=== PATIENT | male | born 1955 | race Caucasian/White ===

== ENCOUNTER → 2024-06-06 06:32 | Day surgery (SDC) | payer MEDICARE, OTHER, SELFPAY | LOC: GI 06:32 | PROVIDERS: ATTENDING PHYSICIAN Internal Medicine | DX: Z12.11 Encounter for screening for malignant neoplasm of colon (principal); Z85.038 Personal history of other malignant neoplasm of large intestine; K57.30 Diverticulosis of large intestine without perforation or abscess without bleeding; D12.2 Benign neoplasm of ascending colon; D12.3 Benign neoplasm of transverse colon; D12.5 Benign neoplasm of sigmoid colon; D12.4 Benign neoplasm of descending colon; K63.5 Polyp of colon | CPT/HCPCS: 45385; 45381; 88305 ==

== ENCOUNTER 2025-01-12 06:26 | Day surgery (SDC) | payer MEDICARE, OTHER, SELFPAY ==
[2025-01-12 10:45] VITALS: BMI 24.8
[2025-01-12 10:46] VITALS: BMI 24.8
[2025-01-12 11:24] VITALS: BP 163/89
[2025-01-12 14:32] VITALS: BP 142/85
[2025-01-12 14:46] VITALS: BP 164/97
== END 2025-01-12 15:03 | disposition home or self-care (01) ==
LOC: SDS 06:26
PROVIDERS: ATTENDING PHYSICIAN Internal Medicine Gastroenterology
DX: D12.2 Benign neoplasm of ascending colon (principal); D12.4 Benign neoplasm of descending colon; K63.5 Polyp of colon; K64.0 First degree hemorrhoids
CPT/HCPCS: 45390; 45385; 88305

== ENCOUNTER 2025-06-07 14:06 | Inpatient (IN) | payer MEDICARE, OTHER, SELFPAY ==
[2025-06-07] VITALS (11 sets, daily range): BP systolic 133–201; BP diastolic 81–128; BMI 26.2; BMI 25.4
--- NOTE | 2025-06-07 11:35 | ED.GENMED ---
History of Present Illness
<Ghada Botello MD, Resident - Last Filed: 06/07/25 14:32>
General
Chief Complaint: Breathing Problem
Source: patient and significant other
Exam Limitations: none
Time Seen by Provider: 06/07/25 11:17
Nursing documentation reviewed up to this point in time: agreed with
History of Present Illness
History of Present Illness:
70yo M with HTN, HLD, & smoking hx who presents following extended episode of dyspnea.
Pt reports that yesterday evening he suddenly began experiencing severe dyspnea, which felt like a panic attack to him. Denies any chest pain, more some pressure, with no radiation to L arm or back. Has chronic back pain. States that he felt
stressed before sx began. Also states that the sx began after he went up a flight of stairs in the house. Then, he was not able to sleep all night due to the dyspnea. He was unable to lie flat, most comfortable with sitting upright in different
positions. Denies any new ALICIA. States that for the last week maybe he's been feeling more dyspneic with walking up and down stairs. This am sx were persistent, so took baby aspirin x4 at 8:30am, which made him feel better. Took his BP, which was
150s systolic. Came to the ED. On transport to the ED, felt a bit dyspneic with activity but not as severe as last night. No visible dyspnea or tachypnea on exam, sitting & speaking without difficulty. Has a dx of HTN, which he manages with
lifestyle only. Has a dx of HLD, which he manages with krill oil.
States that he did have an episode that felt somewhat similar to this but not as severe a few weeks ago. About 5 weeks ago he had a URI, which progressed into a prolonged bronchitis that only recently resolved. Still has a bit of a hoarseness, cough
periodically. Pt does smoke, typically 1-2 cigars a day (prior cigarette smoking, has made attempts to quit in the past).
Past History
<Ghada Botello MD, Resident - Last Filed: 06/07/25 14:32>
Past History
ED Past Medical History: HTN and Hypercholesterolemia
Patient has exhibited threatening behavior?: No
Social History
Tobacco: Smoker
Personal:
Living: with family
Review of Systems
<Ghada Botello MD, Resident - Last Filed: 06/07/25 14:32>
Review of Systems
All Other Systems: ROS reviewed and negative except as documented in HPI and ROS
Constitutional: Reports no symptoms
EENT: Reports sore throat
Respiratory: Reports trouble breathing
Cardiac: Reports no symptoms
ABD/GI: Reports no symptoms
: Reports no symptoms
Musculoskeletal: Reports no symptoms
Skin: Reports no symptoms
Neurological: Reports no symptoms
Psychiatric: Reports anxiety
Phy Exam
<Ghada Botello MD, Resident - Last Filed: 06/07/25 14:32>
General Physical Exam
General Presentation: well appearing and no apparent distress
General age: appears stated age
General Skin: warm and dry
General Habitus: normal
General Mental: alert
Cardiovascular Exam
Cardiovascular Exam: tachycardia and other (trace pitting edema to lower shins bilaterally )
Heart Sounds: normal
Pulmonary Exam
Pulmonary Exam: no respiratory distress, no crackles and no wheezing
Gastrointestinal Exam
Gastrointestinal Exam: soft and non distended
Neurological Exam
Neurological Exam: alert and oriented x3
Musculoskeletal Exam
Musculoskeletal Exam: full ROM and edema (trace pitting edema to lower shins bilat LE)
Skin Exam
Skin Exam: normal color and warm/dry
Psychiatric Exam
Psychiatric Exam: anxious
Scores
<Gahda Botello MD, Resident - Last Filed: 06/07/25 14:32>
Heart Failure Risk
Heart Failure Risk Score: Yes
History of Stroke or TIA: No
History of intubation for respiratory distress: No
Heart rate on ED arrival >/= 110: No
SaO2 <90% on arrival on room air: No
HR >/=110 during 3min walk test (or too ill to perform test): No
ECG has acute ischemic changes: No
Urea >/=12mmol/L (BUN 33.6mg/dL): No
Serum CO2>/=35mmol/L: No
Troponin I or T elevated to CT Level (0.4mg/dL): No
NT-proBNP >/=5,000ng/L (5,000pg/ml): No
HF Risk Score: 0
Admission Status: LOW RISK 2.8% Consider discharge to home with f/u visit to PCP/[facility]
Sepsis
<Ghada Botello MD, Resident - Last Filed: 06/07/25 14:32>
Sepsis Screening
Sepsis Assessment: Sepsis Ruled Out
Sepsis Screen
Sepsis Screen: Sepsis Ruled Out
Date: 06/07/25
Time: 14:32
Course
<Ghada Botello MD, Resident - Last Filed: 06/07/25 14:32>
Orders/Labs/Results
Orders:
Orders
06/07/25 11:03
Electrocardiogram (*1) Urgent
Reason for Study: Chest Pain
EKG- Treatment ONCE
06/07/25 11:37
CR Chest - 2 Views Urgent
Comment:
Reason For Exam: sob
06/07/25 11:41
COVID-19 Antigen Stat
Source: Nasal Swab
Complete Blood Count/With Diff Urgent
Comprehensive Metabolic Panel Urgent
NT-proBNP Urgent
Troponin I Urgent
Influenza A+B Rapid Molecular Urgent
CURTIS Source: Nasal Swab
Specimen Description:
06/07/25 11:57
Nitroglycerin Sublingual [Nitrostat (Sublingual)] 0.4 mg SL [id number] PRN
06/07/25 12:41
Furosemide [Lasix] 40 mg IV NOW STA
06/07/25 13:52
Admit/Transfer Patient As Directed
Co-Sign Provider:
Level of Care: Inpatient admission
Assign to:: Telemetry
Physician / Group: jennifer
Diagnosis: chf exacerbation
Reason for Telemetry: Acute Heart Failure
Date to Stop Telemetry: 06/10/25
Time to Stop Telemetry: 11:00
Reason for Hospitalization: chf exacerbation
Expected length of stay greater than two midnights?: Yes
ELOS- Estimated Length of Stay in days: 2
I certify the patient meets the requirements for IP care: Yes
PRN Pain Medication Management As Directed
May give lesser potent ordered pain med per pt: Yes
preference::
Protocol:: Medication orders for pain may be administered in a
manner that supports deferring to patient preference
when the pt is:
- Requesting an ordered lesser potent pain medication.
Least to most potent pain medications are defined
as: acetaminophen < NSAID < tramadol < opioids
(morphine, oxycodone, hydromorphone).
- Requesting a lesser dose of the same medication IF
ORDERED.
- Requesting a less intrusive route of administration
if both routes are prescribed by the provider (PO <
IV).
06/07/25 13:53
Code Status As Directed
Resuscitation Status: Full Code
06/10/25 11:00
DC Protocol for Telemetry ONCE
Abnormal Lab Results
06/07/25
11:41
RBC 4.51 L 10^6/uL
(4.70-6.10)
MCV 96.0 H fL
(80.0-94.0)
MCH 32.8 H pg
(27.0-31.0)
Absolute Neuts (auto) 7.6 H 10^3/uL
(1.4-6.5)
Absolute Monos (auto) 0.9 H 10^3/uL
(0.1-0.6)
Neutrophils % 75.6 H %
(42.2-75.2)
Lymphocytes % 14.5 L %
(20.5-51.1)
Chloride 108 H mmol/L
(98-107)
Glucose 120 H mg/dl
(70-99)
06/07/25 11:41
06/07/25 11:41
Vital Signs
Initial and Last Documented VS:
Initial Vital Signs
Pulse Resp BP Pulse Ox
103 26 197/128 96
06/07/25 11:06 06/07/25 11:06 06/07/25 11:06 06/07/25 11:06
Last Documented Vital Signs
Pulse Resp BP Pulse Ox
75 23 133/81 96
06/07/25 14:00 06/07/25 14:00 06/07/25 14:00 06/07/25 14:00
<Radha Goodwin, DO - Last Filed: 06/07/25 13:06>
Orders/Labs/Results
Orders:
Orders
06/07/25 11:03
Electrocardiogram (*1) Urgent
Reason for Study: Chest Pain
EKG- Treatment ONCE
06/07/25 11:37
CR Chest - 2 Views Urgent
Comment:
Reason For Exam: sob
06/07/25 11:41
COVID-19 Antigen Stat
Source: Nasal Swab
Complete Blood Count/With Diff Urgent
Comprehensive Metabolic Panel Urgent
NT-proBNP Urgent
Troponin I Urgent
Influenza A+B Rapid Molecular Urgent
CURTIS Source: Nasal Swab
Specimen Description:
06/07/25 11:57
Nitroglycerin Sublingual [Nitrostat (Sublingual)] 0.4 mg SL [id number] PRN
06/07/25 12:41
Furosemide [Lasix] 40 mg IV NOW STA
06/07/25 13:52
Admit/Transfer Patient As Directed
Co-Sign Provider:
Level of Care: Inpatient admission
Assign to:: Telemetry
Physician / Group: jennifer
Diagnosis: chf exacerbation
Reason for Telemetry: Acute Heart Failure
Date to Stop Telemetry: 06/10/25
Time to Stop Telemetry: 11:00
Reason for Hospitalization: chf exacerbation
Expected length of stay greater than two midnights?: Yes
ELOS- Estimated Length of Stay in days: 2
I certify the patient meets the requirements for IP care: Yes
PRN Pain Medication Management As Directed
May give lesser potent ordered pain med per pt: Yes
preference::
Protocol:: Medication orders for pain may be administered in a
manner that supports deferring to patient preference
when the pt is:
- Requesting an ordered lesser potent pain medication.
Least to most potent pain medications are defined
as: acetaminophen < NSAID < tramadol < opioids
(morphine, oxycodone, hydromorphone).
- Requesting a lesser dose of the same medication IF
ORDERED.
- Requesting a less intrusive route of administration
if both routes are prescribed by the provider (PO <
IV).
06/07/25 13:53
Code Status As Directed
Resuscitation Status: Full Code
06/10/25 11:00
DC Protocol for Telemetry ONCE
Abnormal Lab Results
06/07/25
11:41
RBC 4.51 L 10^6/uL
(4.70-6.10)
MCV 96.0 H fL
(80.0-94.0)
MCH 32.8 H pg
(27.0-31.0)
Absolute Neuts (auto) 7.6 H 10^3/uL
(1.4-6.5)
Absolute Monos (auto) 0.9 H 10^3/uL
(0.1-0.6)
Neutrophils % 75.6 H %
(42.2-75.2)
Lymphocytes % 14.5 L %
(20.5-51.1)
Chloride 108 H mmol/L
(98-107)
Glucose 120 H mg/dl
(70-99)
06/07/25 11:41
06/07/25 11:41
Vital Signs
Initial and Last Documented VS:
Initial Vital Signs
Pulse Resp BP Pulse Ox
103 26 197/128 96
06/07/25 11:06 06/07/25 11:06 06/07/25 11:06 06/07/25 11:06
Last Documented Vital Signs
Pulse Resp BP Pulse Ox
75 23 133/81 96
06/07/25 14:00 06/07/25 14:00 06/07/25 14:00 06/07/25 14:00
<Ghada Botello MD, Resident - Last Filed: 06/07/25 14:32>
MDM/Problems Addressed
Differential Diagnosis Includes:
Ddx:
Flash pulmonary edema, new onset CHF in s/o poorly controlled HTN (although ALICIA is trace)
New-onset COPD exacerbation (smoking hx, recent URI/bronchitis; although no wheeze)
Unstable angina (known ASCVD risk factors, improved w aspirin; although no CP)
Panic attack (duration long for that)
PNA (no crackles, no fever)
MDM/Problems Addressed:
- Pro-BNP
- EKG, troponin
- CBC, CMP
- CXR
- COVID, flu
<Ghada Botello MD, Resident - Last Filed: 06/07/25 14:32>
*Pulse Oximetry
SaO2: 98
Oxygen Mode of Delivery: Room air
Patient hypoxic: no
*Critical Care Note
Total Time (30-74mins, 75-104mins- exclusive of procedures): Not Applicable
<Ghada Botello MD, Resident - Last Filed: 06/07/25 14:32>
Update Note
Update Note:
11:45am
Pt with BP elevated to 201/120 systolic on exam, anxious
Will give sublingual nitro
EKG with:
SINUS TACHYCARDIA WITH OCCASIONAL PREMATURE VENTRICULAR COMPLEXES
POSSIBLE LEFT ATRIAL ENLARGEMENT
NON-SPECIFIC INTRA-VENTRICULAR CONDUCTION BLOCK
POSSIBLE INFERIOR INFARCT , AGE UNDETERMINED
ABNORMAL ECG
12:30pm
BNP elevated 67213
Trop subclinical elevation 0.030 likely 2/2 demand ischemia/type II
CXR with signs of congestion, pulm edema, cephalization (pending formal read)
COVID/flu negative
Will give lasix & plan for admission in s/o suspected acute HF exacerbation w flash pulmonary edema
ED Attending Note
<Ghada Botello MD, Resident - Last Filed: 06/07/25 14:32>
-
Portions of this chart may have been created with voice recognition software.� Occasional wrong word or��sound alike� substitutions may have occurred due to the inherent limitations of voice recognition software.
<Radha Goodwin DO - Last Filed: 06/07/25 13:06>
ED Attending Note
Patient seen and examined by attending physician: Yes
I performed the substantive portion of visit, reviewed & personally made and approve the management plan that is documented in note by myself or HARI.: Yes
I performed a history and physical exam of patient and discussed management with resident, I reviewed resident's note and agree with documented findings and plan of care.: Yes
ED Attending Note:
70-year-old male with history of hypertension and hyperlipidemia, managed conservatively with OTC medications, presenting to the emergency department for shortness of breath. Patient reports since yesterday evening, has been feeling dyspneic, worse
when he was trying to go up stairs. He notes that he cannot lay flat. He was unable to sleep all last night secondary to his symptoms. Took 4 aspirin this morning and felt that his symptoms had improved slightly. Denies any associated chest
pain. Denies any lower extremity swelling. Denies any history of CHF. Reports that he checked his blood pressure last evening it was elevated, however this is not atypical for him, will do breathing exercises with subsequent improvement. He was
encouraged to come to the hospital by family. Vital signs on arrival significant for marked hypertension.
On exam, patient resting comfortably, no acute distress. No significant work of breathing. However on cardiac and pulmonary exam, crackles diffusely throughout the lung mederos. No significant lower extremity swelling. EKG obtained on arrival,
abnormal with ST depressions V4-V6. Clinically symptoms appear most consistent with acute CHF, possible element of flash pulmonary edema last evening which has since improved. Plan for chest x-ray laboratory analysis. Will administer
nitroglycerin for patient blood pressure control
13:00 - Chest x-ray is consistent with pulmonary edema and BNP is elevated at 10,000. Again at this time concern for acute heart failure. Patient warrants admission. Will start patient on Lasix and plan for admission.
Discharge Plan
Departure
Patient Disposition: Admit
Date of Disposition: 06/07/25
Time of Disposition: 13:18
Presentation/result/management discussed w/ accepting MD/DO: Hospitalist
Patient with high blood pressure during this ER visit?: Yes
Condition: Fair
Discharge Problem:
New onset of congestive heart failure, Hypertensive emergency
Interventions
Interventions:
*Risk Screen - Suicide Last Done: 06/07/25 13:47
*Neglect/Abuse Screening Last Done: 06/07/25 13:47
ED- Cardiac Assessment Last Done: 06/07/25 13:46
ED- Pulmonary Assessment Last Done: 06/07/25 13:46
[2025-06-07 11:56] LABS: Hematocrit 43.3 % (39.0-52.0); Hemoglobin 14.8 g/dL (13.0-18.0); Mean Corp Hgb Conc. 34.2 g/dL (33.0-37.0); Mean Corpuscular Volume 96.0 fL (80.0-94.0); Nucleated Red Blood Cells % 0 % (-); Platelet Count 168 10^3/uL (130-400); Red Cell Dist. Width 12.8 % (11.5-14.5)
[2025-06-07 12:08] LABS: ALT (SGPT) 32 U/L (0-50); AST (SGOT) 23 U/L (17-59); Albumin 4.7 g/dl (3.5-5.0); Alkaline Phosphatase 67 U/L (38-126); Blood Urea Nitrogen 11 mg/dl (9-20); Calcium 9.2 mg/dl (8.4-10.2); Carbon Dioxide 26 mmol/L (22-30); Chloride 108 mmol/L (98-107); Estimated Creatinine Clearance 100 ml/min; Glucose 120 mg/dl (70-99); Potassium 4.4 mmol/L (3.5-5.1); Sodium 139 mmol/L (135-145); Total Protein 7.9 g/dl (6.3-8.2); eGFR > 60.00
[2025-06-07 12:11] LABS: COVID-19 Antigen Negative (Negative)
[2025-06-07 12:21] LABS: Troponin I 0.030 ng/ml
[2025-06-07] MEDS: NITROSTAT (SUBLINGUAL) 0.4 MG SL ×2 (13:11→13:37)
[2025-06-07] MEDS: LASIX 40 MG IV ×2 (13:12→19:37)
--- NOTE | 2025-06-07 13:56 | HPS.HSE ---
Family Physician
-
Family Physician: Connie King MD
Chief Complaint
-
shortness of breath
History of Present Illness
70-year-old male past medical history of chronic back pain, hypertension, hyperlipidemia, smoking history presenting for shortness of breath starting yesterday. He had recently recovered from a cold a few weeks ago with congestion and cough but has
not completely felt better.
Yesterday he had shortness of breath which felt like a panic attack. He denied any chest pain or pressure. Symptoms may have been triggered by flight of stairs but he is not sure. He denies any swelling in his legs. He thinks that he did gain
some weight during gi.
This morning symptoms were persistent and he took 4 baby aspirin with improvement. �He took his blood pressure which was 150 systolic. �He came to the emergency room.
He smokes 1 to 2 cigars a day but quit a few weeks ago. He drinks alcohol occasionally.
He does not take any medication for high blood pressure.
No family history of heart disease.
Medical History
Past Medical History
Past Medical History: Reports Other (chronic back pain, hypertension, hyperlipidemia, smoking history)
Past Surgical History: Reports None
Social History
Tobacco: Smoker
Alcohol: None
Drug: None
Family History
Family History: Not pertinent
Allergies / Home Medications
Allergies reflects when Allergies were last updated in [facility].
Home Medications with original date entered in [facility]
Allergy/Medication List:
Allergies
Allergy/AdvReac Type Severity Reaction Status Date / Time
Penicillins Allergy Unknown Verified 06/07/25 11:06
pollen extracts Allergy Unknown Verified 06/07/25 11:06
Andizha-ATE-ApD Reductase Allergy Unknown Verified 06/07/25 11:06
Inhibitor
Home Medications
Mushroom Complex 1 tab PO DAILY 01/12/25
krill [id number] 300 mg-90 mg-24 mg-50 mg capsule (krill oil) 1 cap PO DAILY 01/12/25
yeast 1 ea PO DAILY 01/12/25
aspirin 81 mg tablet,delayed release 324 mg PO DAILYPRN PRN mild pain 06/07/25
ibuprofen 200 mg tablet (Advil) 400 mg PO DAILYPRN PRN mild pain 06/07/25
Review of Systems
-
History Source: Patient
A 12 point ROS was completed and negative except as noted: Yes
Constitutional: Reports No Symptoms
EENT: Reports No Symptoms
Respiratory: Reports See HPI
Cardiac: Reports See HPI
Abdomen/GI: Reports No Symptoms
: Reports No Symptoms
Musculoskeletal: Reports No Symptoms
Skin: Reports No Symptoms
Neurological: Reports No Symptoms
Endocrine: Reports No Symptoms
Hematologic/Lymphatic: Reports No Symptoms
Psych: Reports No Symptoms
Physical Exam
Vital Signs
Vital Signs
Pulse Resp BP Pulse Ox
80 23 154/97 96
06/07/25 13:15 06/07/25 13:00 06/07/25 13:37 06/07/25 13:15
Physical Exam
General: Well Developed, Well Nourished and No Apparent Distress
HEENT: NormoCephalic, Moist mucous membranes and Atraumatic
Respiratory: Clear
Cardiac: S1/S2 and Regular Rhythm; No Murmur or Rub
GI: Soft, Non Tender, Non Distended and Normal Bowel Sounds; No Organomegaly
Rectal: Deferred by Provider
Musculoskeletal: No Clubbing, No Cyanosis and No Edema
Skin: No Rash
Neuro: Nonfocal/grossly intact
Laboratory Results
-
06/07/25 11:41
06/07/25 11:41
Laboratory Results
Total Bilirubin 1.2 mg/dl (0.2-1.3) 06/07/25 11:41
AST 23 U/L (17-59) 12/03/25 11:41
ALT 32 U/L (0-50) 06/07/25 11:41
Alkaline Phosphatase 67 U/L (38-126) 06/07/25 11:41
Troponin I 0.030 ng/ml 06/07/25 11:41
Data Reviewed
-
Lab Data: Labs Reviewed by me
Old Records: Reviewed
Impression/Plan
-
IMPRESSION:
PLAN:
# Hypertensive emergency
# Acute new onset CHF exacerbation secondary to uncontrolled hypertension
- Blood pressure up to 201/120 however has come down to 150s with Lasix
-EKG shows sinus tachycardia with occasional PVCs,
- Cardiac BNP 10,000
-Chest x-ray shows perihilar prominence and opacities with small bilateral pleural effusions
- Troponin 0.03
- COVID and influenza negative
- Check I's and O's, daily weights
- Trend troponins
- 40 IV Lasix daily
-As needed hydralazine
-Continue aspirin
- Check echocardiogram
- Cardiology consulted
Hyperlipidemia
Recent smoker
- No longer smoking
Chronic back pain
Full code
DVT prophylaxis�heparin
Cardiac diet
--- NOTE | 2025-06-07 15:09 | CON.CAR ---
Addendum entered and electronically signed by Shannon Mcarthur MD 06/07/25 16:56:
I saw and evaluated the patient, and I provided the substantive portion of the medical decision making.
I reviewed and agree with the note by Rafaela Parr and it accurately reflects our care.
I personally performed the medical decision making of the this encounter and my assessment and plan is below:
70 y/o male (patient of Dr. Stuart) with untreated hypertension, dyslipidemia(statin intolerance) and former tobacco use/ sometimes smokes cigars who presents with acute onset sob yesterday. He denies chest pain, fever, chills, unexplained
headache, alcohol use, NSAID use, but does admit he recently recovered from a viral illness. On arrival he received Lasix and nitroglycerin and is feeling better.
On exam he has a regular rate and rhythm with a normal S1-S2 no murmur rubs gallops were appreciated lungs showed bibasilar rales, abdomen was soft nontender no lower extremity edema.
Labs were concerning for proBNP of 10,100. CXR shows cephalization and interstitial markings c/w Pulm edema ECG is NSR with ICVD and diffuse sttwave changes.
Overall presentation consistent with hypertensive emergency and acute pulmonary edema. Etiology is possibly untreated blood pressure. However I did discuss that this all could be due to an ischemic etiology. I recommended a heparin drip and
cardiac catheterization tomorrow and further evaluation. He refuses both. He is agreeable to an echocardiogram. He is agreeable to diuresis. We do need to get his blood pressure under well control. He may be agreeable to an outpatient
noninvasive evaluation with stress testing after recovery. Will add ARB for blood pressure control. In regards to his hyperlipidemia we will check a fasting lipid panel, may be a candidate for PCSK9 inhibitor if agreeable. However, he is not
interested in any invasive testing. I am not certain he wants to take any medications long-term. Ongoing discussions are needed.
Will follow.
Original Note:
Consultation
Consultation Request
Date/Time Consultation Requested: 06/07/25 1450
Date/Time Consultation Performed: 06/07/25 1500
Requesting Provider: Dr. Goodwin
Performing Provider: Rafaela MARI for Dr. Mcarthur
Reason for Consultation: CHF
Medical History
-
Chief Complaint: SOB
History of Present Illness:
70 y/o male (patient of Dr. Stuart) with hypertension and dyslipidemia (not on medications), and former tobacco use/ sometimes smokes cigars who is here for evaluation of SOB that he developed last night fairly suddenly while not doing anything
particularly active. He did not sleep last night due to SOB and felt better sitting up to breathe. He took 4 baby aspirin this AM, which he felt helped. He did have a mild episode of this about a week ago. No CP. He had a significant cold about a
month ago and has felt somewhat congested since. CXR read: Perihilar prominent interstitial opacities with small bilateral pleural effusions. Findings may represent pulmonary edema, however infection could also appear similar. No WBC. Temp pending,
but no known fever. BNP 10,100. Trop 0.030. No edema or weight gain (except probably with Thanksgiving per patient). COVID19 negative. BP severely elevated on arrival. In the ER, he has been given nitro and Lasix and BP improved. He is in no
distress at the time of my assessment. Partner present at bedside.
Past Medical History
Past Medical History: HTN and Hypercholesterolemia
Social History
Tobacco: Other (former cigarette smoker, sometimes smokes cigars)
Family History
Family History: Reviewed & Not Pertinent
Allergies / Home Medications
Allergy/AdvReac Type Severity Reaction Status Date / Time
Penicillins Allergy Unknown Verified 06/07/25 11:06
pollen extracts Allergy Unknown Verified 06/07/25 11:06
Zjiglrv-JRF-TtD Reductase Allergy Unknown Verified 06/07/25 11:06
Inhibitor
�Medication �Instructions �Recorded �Confirmed �Type
Mushroom Complex 1 tab PO DAILY 01/12/25 06/07/25 History
krill 1 cap PO DAILY 01/12/25 06/07/25 History
mav-wn-3-trz-ydv-flxkqsijwtjmo 300
mg-90 mg-24 mg-50 mg capsule
(krill oil)
yeast 1 ea PO DAILY 01/12/25 06/07/25 History
aspirin 81 mg tablet,delayed 324 mg PO DAILYPRN PRN mild pain 06/07/25 06/07/25 History
release
ibuprofen 200 mg tablet (Advil) 400 mg PO DAILYPRN PRN mild pain 06/07/25 06/07/25 History
Review of Systems
-
History Source: Patient
All other systems: Negative unless noted
Respiratory: Trouble Breathing
Physical Exam
Vital Signs
Pulse Resp BP Pulse Ox
75 23 133/81 96
06/07/25 14:00 06/07/25 14:00 06/07/25 14:00 06/07/25 14:00
Lab Results
06/07/25 11:41
06/07/25 11:41
Troponin I 0.030 ng/ml 06/07/25 11:41
Zdk-I-Qhqufbvepbf Pept 90184 pg/ml 06/07/25 11:41
Physical Exam
General: Well Developed and No Apparent Distress
HEENT: Normocephalic and Anicteric
Respiratory: Crackles (b/l rales bases)
Cardiac: Regular Rhythm
Musculoskeletal: No Edema
Skin: Warm and Dry
Neuro: AO x 3
Psych: Calm
Impression / Plan
-
Acute HF (type unknown):
-symptoms concerning for flash pulmonary edema (condition that is threat to life), echo now, likely ischemic eval with cath in AM. Reports he took 4 baby ASA this AM prior to coming in. ASA continued here. Risk factors: HTN, HLD, hx smoking.
-BNP 10,100
-CXR: Perihilar prominent interstitial opacities with small bilateral pleural effusions. Findings may represent pulmonary edema, however infection could also appear similar. Covid-19 negative. No WBC, temp pending but no known fevers.
-agree with IV diuresis, which requires intensive monitoring- will order BID dosing and give another dose this afternoon
Severe HTN:
-improved s/p nitrates and Lasix
-will add ARB
HLD:
-intolerant to statins (severe muscle issues with ambulatory issues)
-LDL has been above 200, but most recently as OP 175
-consider PCSK9I as OP
-check lipids in AM
Hx tobacco use/current occasional cigar smoking:
-education on full cessation prior to d/c
Data Reviewed
-
EKG: Tracing Personally Visualized and interpreted (ST with occ PVC's, IVCD)
Radiology: Report Reviewed by me (CXR: Perihilar prominent interstitial opacities with small bilateral pleural effusions. Findings may represent pulmonary edema, however infection could also appear similar)
Medical Tests (Nuc Med, Echo etc): Report Reviewed by me (echo ordered)
Labs: Labs Reviewed by me
--- NOTE | 2025-06-07 16:05 | EDCM ---
Reviewed chart and met with pt bedside in ED. Lives alone in 2 [address], no BERNABE. Full flight to second floor bedroom and full bath.
Independent in ADLs, personal care and ambulation at baseline. No assistive devices. 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
Confirms prescription coverage.
No hx VN or SNF.
PCP: Connie King
Pharmacy: [facility]
Anticipate discharge home, no needs. CM will continue to follow for any discharge planning needs.
[2025-06-07] MEDS: DIOVAN 160 MG PO (17:19)
[2025-06-07 18:00] LABS: Troponin I 0.047 ng/ml
[2025-06-07] MEDS: HEPARIN 5000 UNITS SC (19:31)
[2025-06-07 23:27] LABS: Troponin I 0.047 ng/ml
[2025-06-08 03:16] VITALS: BP 143/93
[2025-06-08 04:48] VITALS: BMI 24.8
[2025-06-08 04:58] LABS: Hematocrit 44.6 % (39.0-52.0); Hemoglobin 15.1 g/dL (13.0-18.0); Mean Corp Hgb Conc. 33.9 g/dL (33.0-37.0); Mean Corpuscular Volume 96.7 fL (80.0-94.0); Nucleated Red Blood Cells % 0 % (-); Platelet Count 187 10^3/uL (130-400); Red Cell Dist. Width 12.7 % (11.5-14.5)
[2025-06-08 05:20] LABS: ALT (SGPT) 30 U/L (0-50); AST (SGOT) 23 U/L (17-59); Albumin 4.6 g/dl (3.5-5.0); Alkaline Phosphatase 65 U/L (38-126); Blood Urea Nitrogen 17 mg/dl (9-20); Calcium 9.1 mg/dl (8.4-10.2); Carbon Dioxide 27 mmol/L (22-30); Chloride 106 mmol/L (98-107); Estimated Creatinine Clearance 100 ml/min; Glucose 103 mg/dl (70-99); HDL Cholesterol 37 mg/dl; LDL Cholesterol, Calculated 196 mg/dl; Potassium 3.9 mmol/L (3.5-5.1); Sodium 141 mmol/L (135-145); Total Protein 7.7 g/dl (6.3-8.2); Very Low Density Lipoprotein 32 mg/dl (0-30); eGFR > 60.00
[2025-06-08 05:39] LABS: Troponin I 0.045 ng/ml
[2025-06-08 07:00] VITALS: BP 150/94
[2025-06-08] MEDS: DIOVAN 160 MG PO (07:50)
[2025-06-08] MEDS: HEPARIN 5000 UNITS SC (07:51)
[2025-06-08] MEDS: LASIX 40 MG IV ×2 (07:51→16:04)
[2025-06-08] MEDS: LOW STRENGTH ASPIRIN 81 MG PO (07:52)
--- NOTE | 2025-06-08 08:12 | W.PN.CD ---
Today's Communication / Plan
-
Continue diuresis.
GDMT.
Outpatient PCSK9i.
Invasive evaluation discussed. The patient is deferring at this time. He has been duely informed of the risks involved.
Impression / Plan
-
Impression/Plan: 70 y/o male with HTN, HLD and statin intolerance and tobacco abuse (2 cigars daily, recently quit) admitted with flash pulmonary edema in the context of hypertensive emergency.
#HFrEF/Flash pulmonary edema
-Acute, threat to life. This is a new diagnosis.
-LVEF is 27%.
-Start GDMT as hemodynamics will tolerate:
-Diuretics: Furosemide 40 mg IV daily.
-Beta tiana: Start carvedilol 3.125 mg PO BID.
-ACEI/ARB/ARNi: Currently on valsartan 160 mg daily. Change to sacubitril-valsartan 24/26 mg BID. Case management consult.
-MRA: Consider spironolactone 25 mg after adding beta tiana/ARNi.
-SGLT2i: Start dapagliflozin 10 mg daily. Case managment consult.
-ICD: Re-assess after 90 days of GDMT.
-Discussed R/L heart catheterization with patient to clarify coronary anatomy and filling pressures. The patient is eager to avoid all invasive procedures and would like to use medication only for the time being.
-I emphasized that the patient places himself at risk for , CO and continued heart failure/episodes of flash pulmonary edema if we cannot establish the diagnosis of CAD and potentially treat it. The patient acknowledged this risk and
specifically stated 'I do not hold you responsible' for any adverse outcomes.
#Severe HTN
-Known primary hypertension.
-Monitor response to GDMT.
#HLD
-Chronic, uncontrolled.
-Total cholesterol = 265, LDL = 196, HDL = 37, Triglycerides = 163.
-Intolerant to statins (severe muscle issues with ambulatory issues).
-Started on ezetimibe as an outpatient, but he never followed up in the office.
-Start evolocumab q14 days as an outpatient.
#Hx tobacco use/current occasional cigar smoking:
-Chronic.
-Education on full cessation prior to d/c.
Subjective/Interval History:
Patient admitted with hypertensive emergency and flash pulmonary edema.
He has improved with nitro gtt and diuresis.
Weight is down 2 kg from admission (85.275 <-- 87.203).
TTE revealed new systolic cardiomyopathy.
SaO2 = 98% on RA.
DATA:
TTE, 06/07/2025:
SUMMARY
1. Dilated left ventricular cavity with severely reduced systolic function. Estimated ejection fraction of 27%.
2. Multiple left ventricular segmental wall motion abnormalities are noted, as described below.
3. Right ventricle is dilated with mildly reduced systolic function.
4. Moderate to severe mitral valve regurgitation.
5. No prior study available for comparison.
Physical Exam
Vital Signs/Labs
Vital Signs
Temp Pulse Resp BP Pulse Ox
36.5 C 73 12 150/94 98
06/08/25 07:00 06/08/25 07:51 06/08/25 07:00 06/08/25 07:51 06/08/25 07:00
06/06/25 06/07/25 06/08/25
11:59 11:59 11:59
Actual Weight 90 kg 85.275 kg
06/08/25 04:46
06/08/25 04:46
Triglycerides 163 mg/dl (10-149) H 06/08/25 04:46
LDL Cholesterol, Calc 196 mg/dl 06/08/25 04:46
VLDL Cholesterol, Calc 32 mg/dl (0-30) H 06/08/25 04:46
HDL Cholesterol 37 mg/dl 06/08/25 04:46
06/07/25
11:41
Dgq-U-Spsuayufcxr Pept [id number]
LAB Results
06/07/25 06/07/25 06/07/25
11:41 17:18 22:56
Troponin I 0.030 0.047 H* D 0.047 H*
06/08/25
04:46
Troponin I 0.045 H*
Physical Exam
Constitutional: No acute distress and Comfortable
EENT: Anicteric and Moist mucous membranes
Cardiovascular: Rhythm & rate is regular, Pedal edema is absent, JVD pressure is normal, S1S2 is normal and Murmur/rub/gallop absent
Respiratory: Respiratory effort normal, Wheeze Absent, Rhonchi Absent and Crackles Present (Bilateral bases.)
GI: Soft, Distention absent, Flat, Non tender and Normal bowel sounds
Neuro/Psych: AO x 3
Data Reviewed
-
Date of Service: June 08, 2025
Medical Decision Making: Reviewed Test Results, Independent Historian Assessment and Test Interpretation
EKG: Tracing Personally Visualized and interpreted and Report Reviewed by me
Echo: Tracing Personally Visualized and interpreted and Report Reviewed by me
X-Ray/CT/US/MRI/NUC/PET: Image Personally Visualized and interpreted and Report Reviewed by me
Labs: Labs Reviewed by me
Old Records: Reviewed
[2025-06-08 09:13] LABS: Glycohemoglobin (HgbA1c) 5.5 % (4.0-5.9)
--- NOTE | 2025-06-08 09:14 | W.PN.HOSP.TC ---
Today's Communication/Plan
-
See plan
Assessment / Plan
Assessment / Plan
Physical exam:
General: Acutely ill
HEENT: Normocephalic, Atraumatic and Moist Mucous Membranes
Respiratory: Coarse crackles; Negative Wheezes, or Rhonchi
Cardiac: Regular Rhythm and S1/S2
GI: Soft, Nontender and Nondistended
Musculoskeletal: No Clubbing, No Cyanosis and No Edema
Neuro: Awake, Alert and Oriented, no neurological deficit
Psych: Calm
A/P:
Acute HFrEF:
On IV Lasix 40 mg twice a day
GDMT-on Coreg, Entresto, and Farxiga.
Continue monitor daily weights and ins and outs
Cardiology consult appreciated
Echocardiogram EF of 27%
Patient was to go home today--> discussed with cardiology who agrees with discharging him today. Despite high risk patient understands risk of leaving early including risk of and does not want to pursue any further interventions but
considering outpatient workup with cardiology as outpatient.
Hypertensive emergency:
Evidence of pulmonary edema and elevated troponin. His blood pressure afternoon 158/93
Monitor blood pressure response with current antihypertensives
Elevated troponin:
Type I versus type II AL
Patient refuses cardiac catheterization
Hyperlipidemia:
Started on ezetimibe
Intolerant to statin
Plan to start evolocumab as outpatient
Nicotine use disorder:
Smoking cessation advised
DVT prophylaxis:
Heparin SQ
CODE STATUS:
Full code
Total time spent on today's encounter was 52 minutes which included time spent in counseling the patient/family regarding diagnosis and treatment plan as listed above, goals of care, and symptom management. Case was discussed with nursing staff,
specialists, and care coordinators/case management. All labs and imaging personally reviewed by me. Remainder the time spent in detailed review of previous records, lab data, imaging, and other medical provider documentation.
Anticipated Discharge: Today
Subjective/Interval History
-
Date of Service: June 08, 2025
Patient denies any chest pain. Feels less short of breath.
Objective Data
-
Labs:
Laboratory Results
06/08/25
04:46
WBC 8.3
Hgb 15.1
Hct 44.6
Plt Count 187
Sodium 141
Potassium 3.9
Chloride 106
Carbon Dioxide 27
BUN 17
Creatinine 0.8
Glucose 103 H
Calcium 9.1
Total Bilirubin 1.6 H
AST 23
ALT 30
Alkaline Phosphatase 65
Vital Signs:
Vital Signs
Temp Pulse Resp BP Pulse Ox
97.7 F 73 12 150/94 98
06/08/25 07:00 06/08/25 07:51 06/08/25 07:00 06/08/25 07:51 06/08/25 07:00
I&O
06/07/25 06/08/25 06/09/25
06:59 06:59 06:59
Intake Total 480 / 480
Output Total 900 / 900
Balance -420 / -420
[2025-06-08] MEDS: COREG 3.125 MG PO (10:28)
[2025-06-08] MEDS: FARXIGA 10 MG PO (10:30)
[2025-06-08 11:00] VITALS: BP 147/97
--- NOTE | 2025-06-08 11:32 | CM ---
CM reviewed chart, consult received for verdin check of medications : Dapagliflozin 10 mg, Sacubitril-Valsartan 24/26 mg BID.
CM spoke with patients pharmacy:
-Dapagliflozin not covered, brand name $500 30 day supply.
-Entresto $127.61 30 day supply.
Will review with patient. CM will continue to follow for all d/c planning needs.
Plan; home no needs
[2025-06-08 15:00] VITALS: BP 158/93
--- NOTE | 2025-06-08 15:57 | W.PN.UPDATE ---
Addendum entered and electronically signed by Steve Stuart DO 06/08/25 16:07:
The patient should also be discharged on furosemide 40 mg PO daily.
Original Note:
Update Note
Progress Note Update
I spoke with the patient at length as well as his significant other. I explained the patient's clinical situation to the patient's significant other and reiterated the seriousness of his newly diagnosed cardiomyopathy and likely diagnosis of
obstructive coronary artery disease. Unfortunately, due to roommate circumstances, the patient has not slept in 2 days. He is exhausted and would prefer to leave the hospital as he is feeling improved. He expressed that he is more open to the
concept of invasive angiography as an outpatient and is not opposed to starting GDMT medications. He accepts the relative risk of discharge at this time.
I would favor discharge on aspirin 81 mg daily, carvedilol, sacubitril/valsartan. Dapagliflozin is financially prohibitive. We will start spironolactone 12.5 mg daily. He needs a BMP in 1 week. I will alert our front office to schedule him for
follow-up in our office [facility].
--- NOTE | 2025-06-08 16:23 | W.DCSUMMARY ---
Discharge Summary
Discharge Data
Date of Admission: 06/07/25
Date of Discharge: 06/08/25
Total time spent discharging patient (in min): 35
-
Pending Results: No
Hospital Course
Patient is 70 years old male with untreated hypertension and dyslipidemia and former smoker came into the hospital with acute dyspnea and found to be in acute heart failure. Patient was diuresed with IV Lasix. Cardiology consulted. Patient also
was noted to have hypertensive emergency. He was started on antihypertensive regimen with with GDMT for heart failure. His echocardiogram showed a EF of 27% and moderate to severe mitral valve regurgitation and no prior studies for comparison.
There was also multiple left ventricular segmental wall motion abnormality noted. Cardiology and I discussed at length with patient and recommended invasive strategy with cardiac catheterization but patient adamantly refused. He did however
mention that probably would consider as outpatient. Patient is hemodynamically stable and chest pain-free and his blood pressure has improved so he also has requested to go home today. I was hesitant on letting him go and explained to patient that
he will need to see how his medications are working on him but after asking cardiology as a matter fact cardiology is clearing him to go home today. Cardiology mentioned they have explained all risks associated with not proceeding with intervention
and at this point he can be discharged with current cardiac regimen of aspirin, carvedilol, Entresto, spironolactone, nitrates as needed, and Lasix. Will have him follow-up with cardiology as outpatient. He will be discharged sooner than expected.
Discharge duration: 35 minutes
Discharge Plan
-
Patient Disposition: Home (Routine Discharge)
Discharge Diagnosis/Procedures: Acute systolic congestive heart failure. Hypertensive emergency. Elevated troponin myocardial infarction type I versus type II.
Diet: Low Cholesterol, 2 Gram Sodium and Restrict fluids to 48 oz
Activity: As tolerated
Blood Work: Please PCP to order CBC, BMP within 1 week
Specialty Instructions: Weigh Daily- Call MD for wt gain/loss 3 lbs overnight/5 lbs in 1 week
Referrals:
Steve Stuart, DO [Active, Cardiology] - in one to two weeks
Connie King MD [Family Provider, Family Practice] - in less than 1 week
Shannon Mcatrhur MD [Active, Cardiology] - in one to two weeks
Prescriptions:
New
nitroglycerin 0.4 mg Tablet, Sublingual
0.4 mg sublingual [id number] PRN (Reason: ANGINA) Qty: 20 0RF
aspirin 81 mg Tablet,Chewable
81 mg PO DAILY 30 Days Qty: 30 0RF
sacubitril-valsartan 24-26 mg Tablet
1 tab PO BID Qty: 60 0RF
carvedilol 3.125 mg Tablet
3.125 mg PO BID Qty: 60 0RF
furosemide [Lasix] 40 mg tablet
40 mg PO DAILY Qty: 30 0RF
spironolactone 25 mg tablet
12.5 mg PO DAILY Qty: 14 0RF
Continued
yeast Powder
1 ea PO DAILY
Rx Instructions:
1 tablespoon
lolvq-yybcl-6-hno-bba-rdmzde [krill oil] 689-38-10-50 mg Capsule
1 cap PO DAILY
Mushroom Complex
1 tab PO DAILY
Discontinued
aspirin 81 mg Tablet,Delayed Release (Dr/Ec)
324 mg PO DAILYPRN PRN (Reason: mild pain)
ibuprofen [Advil] 200 mg Tablet
400 mg PO DAILYPRN PRN (Reason: mild pain)
Discharge Orders:
Discharge Patient (As Directed); Ordered 06/08/25
Ordered By: Wilmer Dominguez
Discharge Date and Time
Print Language: MOZAMBICAN
== END 2025-06-08 17:03 | disposition home or self-care (01) | DRG 291 ==
LOC: 4 WEST ACU 14:06
PROVIDERS: Nurse Practitioner; ADMITTING PHYSICIAN Hospitalist; ATTENDING PHYSICIAN Hospitalist; CONSULT PHYSICIAN Internal Medicine Cardiovascular Disease; EMERGENCY PHYSICIAN Student in an Organized Health Care Education/Training Program; FAMILY PHYSICIAN Family Medicine
DX: I11.0 Hypertensive heart disease with heart failure (principal); I50.21 Acute systolic (congestive) heart failure; I16.1 Hypertensive emergency; F17.200 Nicotine dependence, unspecified, uncomplicated; I49.3 Ventricular premature depolarization; Z11.52 Encounter for screening for COVID-19; G89.29 Other chronic pain; M54.9 Dorsalgia, unspecified; I07.1 Rheumatic tricuspid insufficiency; I20.9 Angina pectoris, unspecified; I34.0 Nonrheumatic mitral (valve) insufficiency; I35.8 Other nonrheumatic aortic valve disorders
CPT/HCPCS: 71046; 80053; 80061; 83036; 83880; 84484; 85025; 87502; 87811; 93005; 93306; 96374; 99285